=== PATIENT | female | born 1995 | race Two or more races ===

== ENCOUNTER 2019-11-10 10:05 | Emergency (ER) | payer BC ==
[~2019-11-10] VITALS: Ht 160 cm; Wt 73.1 kg
[2019-11-10 10:40] LABS: RAPID INFLUENZA A Negative (Negative); RAPID INFLUENZA B Negative (Negative)
--- NOTE | 2019-11-10 10:46 | NUR ---
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
--- NOTE | 2019-11-10 10:56 | NUR ---
PATIENT BROUGTH BACK FROM TRIAGE WITH CHIEF COMPLAINT OF SOB, COUGH, CP, SORE THROAT STARTING LAST NIGHT. PATIENT STATES SHE HAD A COLD LAST WEEK, NO INTERVENTIONS SEEKED. THE PATIENT ARRIVES ALERT, ORIENTED, WARM AND DRY.
[2019-11-10 11:12] LABS: MEAN CORPUSCULAR HGB CONC 33.7 g/dL (32.4-35.8); MEAN CORPUSCULAR VOLUME 94.9 fL (80-100); MEAN PLATELET VOLUME 8.2 fL (7.4-10.4); PLATELET COUNT 314 x10^3/uL (130-400); RED BLOOD COUNT 5.05 x10^6/uL (3.82-5.3); RED CELL DISTRIBUTION WIDTH 12.3 % (9.6-15.2)
[2019-11-10 11:21] LABS: ANION GAP 9 mmol/L (5-15); CALCIUM 8.7 mg/dL (8.5-10.1); CHLORIDE 108 mmol/L (98-107); CREATININE 0.77 mg/dL (0.55-1.02)
[2019-11-10 11:36] LABS: BASOPHILS # (AUTO) 0.05 x10^3/uL (0-0.1); BASOPHILS % (AUTO) 0 % (0-1); EOSINOPHILS # (AUTO) 0.06 x10^3/uL (0-0.4); EOSINOPHILS % (AUTO) 0 % (1-7); LYMPHOCYTES # (AUTO) 0.99 x10^3/uL (1-3.4); LYMPHOCYTES % (AUTO) 5 % (22-44); MD SCAN; MONOCYTES # (AUTO) 0.65 x10^3/uL (0.2-0.8); MONOCYTES % (AUTO) 3 % (2-9); NEUTROPHILS # (AUTO) 17.85 x10^3/uL (1.8-6.8); NEUTROPHILS % (AUTO) 91 % (42-75)
--- NOTE | 2019-11-10 11:43 | NUR ---
PT TO CT
--- NOTE | 2019-11-10 11:56 | NUR ---
22 G IV RT AC STARTED BY CT
--- NOTE | 2019-11-10 11:58 | NUR ---
BACK FROM IMAGING
[2019-11-10] MEDS ORDERED: OMNIPAQUE 350 MG/ML, 75ML BOTTLE ONE (12:00)
[2019-11-10] MEDS ORDERED: KETOROLAC 30 MG/1 ML ONE (12:51)
--- NOTE | 2019-11-10 12:59 | NUR ---
MEDICATED FOR PAIN
[2019-11-10] MEDS ORDERED: SODIUM CHLORIDE 0.9% 1,000ML IVBOLUS ONE (13:00)
[2019-11-10] MEDS ORDERED: KETOROLAC 30 MG/1 ML IVPush ONE (13:00)
[2019-11-10] MEDS ORDERED: AZITHROMYCIN 500 MG TABLET PO ONE (13:30)
[2019-11-10] MEDS ORDERED: AMOXICILLIN 500 MG CAPSULE PO ONE (13:30)
--- NOTE | 2019-11-10 13:45 | NUR ---
ERMD AT BEDSIDE TO DISCUSS POC
--- NOTE | 2019-11-10 14:05 | NUR ---
DISCHARGE INSTRUCTIONS REVIEWED
[2019-11-10] MEDS ORDERED: AZITHROMYCIN 500 MG TABLET ONE (14:07)
[2019-11-10] MEDS ORDERED: AMOXICILLIN 500 MG CAPSULE ONE (14:07)
[2019-11-10 14:21] VITALS: BP 108/54
== END 2019-11-10 14:30 | disposition home or self-care (01) ==
LOC: ED 12:10
DX: R09.1 Pleurisy (principal); J15.9 Unspecified bacterial pneumonia; R11.10 Vomiting, unspecified
CPT/HCPCS: 36415; 71046; 71260; 80048; 82040; 85025; 87400; 93005; 96361; 96374; 99284; J1885; J7030; Q9967

== ENCOUNTER 2019-11-11 05:27 | Emergency (ER) | payer BC ==
[2019-11-11] MEDS ORDERED: ACETAMINOPHEN 500 MG TABLET ONE (05:58)
[2019-11-11] MEDS ORDERED: SODIUM CHLORIDE FLUSH 10ML SYR IVF ONE (06:00)
[2019-11-11] MEDS ORDERED: ACETAMINOPHEN 500 MG TABLET PO ONE (06:00)
[2019-11-11] MEDS ORDERED: SODIUM CHLORIDE 0.9% 1,000ML IVBOLUS ONE (06:00)
[2019-11-11 06:09] LABS: RAPID INFLUENZA A Negative (Negative); RAPID INFLUENZA B Negative (Negative)
[2019-11-11 06:26] LABS: MEAN CORPUSCULAR HEMOGLOBIN 31.7 pg (27.0-34.8); MEAN CORPUSCULAR HGB CONC 33.6 g/dL (32.4-35.8); MEAN CORPUSCULAR VOLUME 94.3 fL (80-100); PLATELET COUNT 237 x10^3/uL (130-400); RED BLOOD COUNT 4.71 x10^6/uL (3.82-5.3); RED CELL DISTRIBUTION WIDTH 12.3 % (9.6-15.2)
[2019-11-11 06:29] LABS: ANION GAP 9 mmol/L (5-15); CALCIUM 8.2 mg/dL (8.5-10.1); CHLORIDE 112 mmol/L (98-107); CREATININE 0.73 mg/dL (0.55-1.02)
[2019-11-11 06:43] LABS: BASOPHILS % (AUTO) 0 % (0-1); EOSINOPHILS # (AUTO) 0.32 x10^3/uL (0-0.4); EOSINOPHILS % (AUTO) 2 % (1-7); LYMPHOCYTES # (AUTO) 0.52 x10^3/uL (1-3.4); LYMPHOCYTES % (AUTO) 3 % (22-44); MD SCAN; MONOCYTES # (AUTO) 0.02 x10^3/uL (0.2-0.8); MONOCYTES % (AUTO) 0 % (2-9); NEUTROPHILS # (AUTO) 14.56 x10^3/uL (1.8-6.8); NEUTROPHILS % (AUTO) 95 % (42-75)
--- NOTE | 2019-11-11 06:54 | NUR ---
PT RESTING IN BED, EYES CLOSED, RESPIRATIONS EVEN AND UNLABORED. CALL LIGHT IN REACH. REPORT FROM TOM DODD.
[2019-11-11 07:01] LABS: TROPONIN I < 0.015 ng/mL (0.000-0.045)
--- NOTE | 2019-11-11 08:14 | NUR ---
IMAGING AT BEDSIDE
[2019-11-11 09:22] VITALS: BP 111/68
== END 2019-11-11 10:03 | disposition home or self-care (01) ==
LOC: ED 05:43
DX: J15.9 Unspecified bacterial pneumonia (principal); Z88.0 Allergy status to penicillin
CPT/HCPCS: 36415; 71046; 80048; 83605; 83880; 84145; 84484; 85025; 87040; 87400; 99284; J7030